=== PATIENT | male | born 1965 | race Asian ===

== ENCOUNTER 2016-12-23 10:56 | Emergency (ER) | payer OTHER ==
--- NOTE | ~2016-12-23 | CR72 ---
[facility] A Service of [facility] & [facility] RADIOLOGY TEXT RESULTS PATIENT: FIGUEROA TORO LOCATION: [facility] : 65 UNIT #: [id number] AGE: [address]: Matt Zabala MD SEX: M ORDER DR: [id number] [facility] [address] [place], [place] [address] [id number] E MR#: [id number] Acc #: [id number] NAME: FIGUEROA TORO : 1965 SEX: M STUDY DATE/TIME: 12/23/2016 10:12 UNIT: [facility] ROOM: STUDY DESCRIPTION: CR Chest Single View Portable Attending Physician: Kal Zabala M.D. Ordering Physician: Ed Fermin Jennings M.D. Primary Care Physician: Marcus Longoria M.D. MEDICAL IMAGING REPORT This report is preliminary unless electronic signature is present EXAM Portable chest INDICATIONS 51-year male with flu-like symptoms today and shortness of breath compared with 07/12/2016 FINDINGS There is some very vague nodular densities in the right upper zone which may represent pneumonia. Correlate clinically. Suggest a short-interval PA and lateral chest x-ray followup in 2-4 weeks to document clearing. Heart size normal. Visualized osseous structures are unremarkable. IMPRESSION Vague nodular densities in the right upper zone which may represent pneumonia or developing infiltrate. Correlate clinically. Suggest a short-interval followup PA and lateral chest x-ray in 2-4 weeks to document clearing Dictated by... Nik Olmedo M.D. THIS IS AN ELECTRONICALLY VERIFIED REPORT Nik Olmedo M.D. at 12/24/2016 10:43 AM KANCHAN/gloria TD: 12/24/2016 03:59 JOB #: [id number] MEDICAL IMAGING REPORT COPY
[2016-12-23 10:29] LABS: BASOPHIL# 0.1 X10e3 (0-0.3); BASOPHIL% 0.8 % (0-2.5); EOSINOPHIL# 0.9 X10e3 (0-0.7); EOSINOPHIL% 8.9 % (0.0-7.0); HEMATOCRIT 41.7 % (38.0-50.0); HEMOGLOBIN 13.9 gm/dL (13.0-16.0); MEAN CELL VOLUME 93.5 FL (83-96); MEAN CORPUSCULAR HEMOGLOBIN 31.2 PG (28-34); MEAN CORPUSCULAR HGB CONC 33.4 g/dL (30-36); MEAN PLATELET VOLUME 8.2 FL (6.5-11.5); MONOCYTE# 0.3 X10e3 (0-1.0); MONOCYTE% 3.1 % (3.0-12.0); NEUTROPHIL# 8.3 X10e3 (1.5-7.1); NEUTROPHIL% 78.2 % (40-75); PLATELET COUNT 215 X10e3 (140-420); RED BLOOD COUNT 4.47 X10e (3.90-5.60); RED CELL DISTRIBUTION WIDTH 12.8 % (11.0-15.5); WHITE BLOOD COUNT 10.6 X10e3 (4.0-10.5)
[2016-12-23 10:30] LABS: DIFF IND NO
[2016-12-23 10:55] LABS: BUN/CREATININE RATIO 27.14; CALCIUM SERUM 9.1 mg/dL (8.4-10.2); CREATININE SERUM 1.4 mg/dL (0.6-1.4); GLOM FILT RATE Estimated 56.8 mL/min (>60)
[2016-12-23 11:44] LABS: INFLUENZA A NEG (NEG); INFLUENZA B NEG (NEG)
== END 2016-12-23 12:30 ==
LOC: CED 10:56
PROVIDERS: Emergency Medicine
DX: J18.9 Pneumonia, unspecified organism (principal); E11.9 Type 2 diabetes mellitus without complications; I10 Essential (primary) hypertension; F31.9 Bipolar disorder, unspecified; E03.9 Hypothyroidism, unspecified
CPT/HCPCS: 36415; 71010; 80048; 85025; 87804; 96374; 99284